=== PATIENT | male | born 1985 | race American Indian/Alaskan Native ===

== ENCOUNTER 2021-12-08 20:04 | Emergency (ER) | payer SELFPAY ==
[2021-12-08 20:48] LABS: ANION GAP 8.2 meq/L (7-15); CHLORIDE,CL 105 mmol/L (98-107); ESTIMATED GFR 89 mL/min (>=60); SODIUM,NA 140 mmol/L (136-145)
[2021-12-08] MEDS ORDERED: Colchicine 0.6 MG Tab PO ONE ×2 (21:16→22:31)
[2021-12-08] MEDS ORDERED: Allopurinol 100 MG Tab PO ONE (22:34)
[2021-12-08] MEDS ORDERED: Ketorolac 10 MG Tab PO ONE (22:38)
== END 2021-12-08 22:50 | disposition home or self-care (01) ==
LOC: LL.ED 20:04
DX: M25.571 Pain in right ankle and joints of right foot (principal); M25.572 Pain in left ankle and joints of left foot; F17.210 Nicotine dependence, cigarettes, uncomplicated; E66.9 Obesity, unspecified; Z68.30 Body mass index [BMI] 30.0-30.9, adult; Z79.899 Other long term (current) drug therapy
CPT/HCPCS: 36415; 80053; 84550; 85025; 85379; 99283; A9270-GY

== ENCOUNTER 2022-01-16 14:36 | Emergency (ER) | payer SELFPAY ==
[2022-01-16 15:28] LABS: ANION GAP 7.4 meq/L (7-15)
== END 2022-01-16 16:25 | disposition home or self-care (01) ==
LOC: LL.ED 14:36
DX: M25.571 Pain in right ankle and joints of right foot (principal); M25.572 Pain in left ankle and joints of left foot; M10.9 Gout, unspecified; E66.9 Obesity, unspecified; Z68.43 Body mass index [BMI] 50.0-59.9, adult; Z79.899 Other long term (current) drug therapy; Z20.822 Contact with and (suspected) exposure to COVID-19
CPT/HCPCS: 36415; 80048; 84550; 85025; 85652; 99283; 99284; U0002

== ENCOUNTER 2022-06-11 22:18 | Emergency (ER) | payer SELFPAY ==
[2022-06-11] MEDS ORDERED: Aspirin 81 MG Tab.Chew PO ONE (22:29)
[2022-06-11 23:20] LABS: ANION GAP 5.7 meq/L (7-15); CHLORIDE,CL 104 mmol/L (98-107); SODIUM,NA 139 mmol/L (136-145)
[2022-06-11 23:21] LABS: ESTIMATED GFR 102 mL/min (>=60)
[2022-06-11 23:21] LABS: CORONAVIRUS COVID-19 NAA NEGATIVE (NEGATIVE); RESPIRATORY SYNCYTIAL VIR NAA NEGATIVE (NEGATIVE)
[2022-06-11] MEDS ORDERED: Ketorolac 30 MG/ML SDV IVPUSH ONE (23:22)
[2022-06-11] MEDS ORDERED: Ondansetron 4 MG/2 ML SDV IVPUSH ONE (23:22)
[2022-06-11] MEDS ORDERED: Sodium Chloride 0.9% 1,000 ML IV ONE (23:22)
[2022-06-11] MEDS ORDERED: LORazepam 0.5 MG Tab PO ONE (23:22)
[2022-06-11 23:32] LABS: BARBITURATE SCREEN,URINE NEGATIVE (NEGATIVE); BENZODIAZEPINES SCREEN,URINE NEGATIVE (NEGATIVE); EDDP,URINE SCREEN NEGATIVE (NEGATIVE); TCA SCREEN,URINE NEGATIVE (NEGATIVE); THC SCREEN,URINE 50 NG/ML POSITIVE (NEGATIVE)
[2022-06-11 23:33] LABS: BUPRENORPHINE SCREEN,URINE NEGATIVE (NEGATIVE)
[2022-06-11] MEDS ORDERED: Pantoprazole 40 MG Vial IVPUSH ONE (23:36)
[2022-06-11] MEDS: Sodium Chloride 0.9% 10 ML Syringe FLUSH PRN ×2 (23:37→23:38)
== END 2022-06-12 01:00 | disposition home or self-care (01) ==
LOC: LL.ED 22:18
DX: B34.9 Viral infection, unspecified (principal); M10.9 Gout, unspecified; E66.9 Obesity, unspecified; Z68.30 Body mass index [BMI] 30.0-30.9, adult; Z72.0 Tobacco use; Z20.822 Contact with and (suspected) exposure to COVID-19
CPT/HCPCS: 0241U; 36415; 71046; 80053; 80305-QW; 81001; 83735; 84484; 85025; 85379; 93005; 93010; 96361; 96374; 96375; 99284; 99285-25; A9270-GY; C9113; J1885; J2405; J3490; J7030

== ENCOUNTER 2022-11-06 00:04 | Emergency (ER) | payer SELFPAY ==
[2022-11-06 00:47] LABS: BASOPHILS ABSOLUTE AUTO 0.05 K/uL (0.00-0.20); BASOPHILS PERCENT AUTO 0.4 % (0.0-2.0); EOSINOPHILS ABSOLUTE AUTO 0.22 K/uL (0.00-0.50); EOSINOPHILS PERCENT AUTO 1.7 % (0.0-5.0); HEMATOCRIT 43.9 % (39.0-49.0); HEMOGLOBIN 16.3 g/dL (13.1-16.8); LYMPHOCYTES ABSOLUTE AUTO 4.16 K/uL (0.50-3.50); LYMPHOCYTES PERCENT AUTO 31.8 % (10.0-50.0); MEAN CORPUSCULAR HGB CONC 37.1 g/dL (31.7-36.0); MEAN CORPUSCULAR VOLUME 80.7 fL (84.0-98.0); MONOCYTES PERCENT AUTO 8.4 % (2.0-14.0); NEUTROPHILS ABSOLUTE AUTO 7.54 K/uL (1.40-7.00); NEUTROPHILS PERCENT AUTO 57.7 % (45.0-80.0); PLATELET COUNT,PLT 248 K/uL (150-350); RED BLOOD CELL COUNT 5.44 M/uL (4.33-5.41); WHITE BLOOD CELL COUNT,WBC 13.1 K/uL (4.0-10.2)
[2022-11-06 00:54] LABS: ALBUMIN 3.6 g/dL (3.4-5.0); ALKALINE PHOSPHATASE 84 IU/L (46-116); ASPARTATE AMNIOTRANSFERASE,AST 17 U/L (15-37); BILIRUBIN TOTAL 1.1 mg/dL (0.2-1.0); BLOOD UREA NITROGEN,BUN 11 mg/dL (7-18); CALCIUM 9.1 mg/dL (8.5-10.1); CHLORIDE,CL 104 mmol/L (98-107); CREATININE 0.97 mg/dL (0.51-1.17); GLUCOSE RANDOM 114 mg/dL (70-99); LIPASE 44 U/L (73-393); POTASSIUM,K 3.7 mmol/L (3.5-5.1); PROTEIN TOTAL,TP 7.6 g/dL (6.4-8.2); SODIUM,NA 138 mmol/L (136-145)
[2022-11-06 00:55] LABS: ESTIMATED GFR 104 mL/min (>=60)
[2022-11-06 00:56] LABS: APPEARANCE,URINE CLEAR; BILIRUBIN,URINE SMALL (NEGATIVE); COLOR,URINE DARK YELLOW; GLUCOSE,URINE NEGATIVE (NEGATIVE); KETONES,URINE TRACE mg/dL (NEGATIVE); LEUKOCYTE ESTERASE,URINE NEGATIVE (NEGATIVE); NITRITE,URINE NEGATIVE (NEGATIVE); OCCULT BLOOD,URINE TRACE-INTACT (NEGATIVE); PROTEIN,URINE TRACE mg/dL (NEGATIVE); UROBILINOGEN,URINE 0.2 E.U./dL (0.2-1.0)
[2022-11-06 00:57] LABS: AMORPHOUS SEDIMENT,URINE FEW /HPF (0/HPF); MUCUS,URINE FEW /LPF (NEGATIVE); WBC,URINE 0-5 /HPF
[2022-11-06] MEDS: Take Home: Ondansetron 4 MG Tab.DIS, 5 Tab Pack PO ONE (01:50)
== END 2022-11-06 01:55 | disposition home or self-care (01) ==
LOC: LL.ED 00:04
DX: A08.4 Viral intestinal infection, unspecified (principal); M10.9 Gout, unspecified; J45.909 Unspecified asthma, uncomplicated; E66.9 Obesity, unspecified; Z68.30 Body mass index [BMI] 30.0-30.9, adult; Z72.0 Tobacco use
CPT/HCPCS: 36415; 80053; 81001; 83690; 85025; 86140; 93005; 99284; Q0162